=== PATIENT | female | born 1945 | race Caucasian/White ===

== ENCOUNTER 2017-03-15 16:21 | Inpatient (IN) ==
[2017-03-15 18:28] LABS: Basophils % 0.2 % (0.0-0.8); Eosinophils # 0.2 10*3/uL (0.0-0.87); Eosinophils % 2.2 % (0.00-10.9); Hematocrit 33.3 VOL% (35.7-47.0); Hemoglobin 11.1 GM/DL (12.0-16.0); Immature Granulocytes % 1.1 %; Immature Granulocytes Absolute 0.09 #; Lymphocytes % 23.6 % (21.3-54.2); Mean Corpuscular HGB Conc 33.3 GM/DL (32-36); Mean Corpuscular Hemoglobin 31 PG (27-34); Mean Corpuscular Volume 92.5 FL (87-102); Mean Platelet Volume 9.9 FL (9.6-12.0); Monocytes # 0.8 10*3/uL (0.11-0.8); Monocytes % 9.8 % (1.7-12.7); Neutrophils # 5.4 10*3/uL (1.4-7.4); Neutrophils % 63.1 % (38.7-73.9); Platelet Count 211 T/CUMM (130-400); White Blood Count 8.5 T/CUMM (4-12)
[2017-03-15 18:42] LABS: PT Patient Result 10.7 SECS; Partial Thromboplastin Time 26.1 SECS (0-40)
[2017-03-15 18:47] LABS: Albumin 3.4 G/DL (3.4-5.0); Bilirubin,Total 0.5 MG/DL (0.2-1.0); Calcium 8.7 MG/DL (8.5-10.1); Osmolality,Calculated 280.5 MOS/KG (273-304); Potassium 3.8 MMOL/L (3.5-5.1); Total Protein 7.2 G/DL (6.4-8.3)
[2017-03-15] MEDS ORDERED: MAGNESIUM HYDROXIDE SUSP 30 ML UDCUP PO PRN (20:50)
[2017-03-15] MEDS ORDERED: HYDROmorphone 2 MG/1 ML VIAL IV PRN (21:00)
[2017-03-15] MEDS: SODIUM CHLORIDE 0.9% 1,000 ML IV SCH (22:07)
[2017-03-16] MEDS: SODIUM CHLORIDE 0.9% 1,000 ML IV SCH ×2 (06:20→16:16)
[2017-03-16] MEDS ORDERED: GLUCAGON 1 MG VIAL IM PRN (09:59)
[2017-03-16] MEDS ORDERED: DEXTROSE 50% 25 GM/50 ML VIAL IV PRN (09:59)
[2017-03-16] MEDS: INSULIN LISPRO 100 UNIT/ML SUBCUT SCH ×3 (11:39→22:09)
[2017-03-16] MEDS: GABAPENTIN 300 MG CAPSULE PO SCH ×2 (16:16→22:10)
[2017-03-16] MEDS: FAMOTIDINE 20 MG TABLET PO SCH (22:10)
[2017-03-16] MEDS: BENZTROPINE 1 MG TABLET PO SCH (22:10)
[2017-03-16] MEDS: ATORVASTATIN 40 MG TABLET PO SCH (22:10)
[2017-03-17] MEDS: SODIUM CHLORIDE 0.9% 1,000 ML IV SCH (05:37)
[2017-03-17] MEDS: INSULIN LISPRO 100 UNIT/ML SUBCUT SCH ×4 (08:01→21:49)
[2017-03-17] MEDS ORDERED: HYDROmorphone 2 MG/1 ML VIAL IV PRN ×2 (08:24→08:38)
[2017-03-17] MEDS ORDERED: Brexpiprazole [Rexulti] 3 MG PO SCH (09:00)
[2017-03-17] MEDS ORDERED: amLODIPine 10 MG TABLET PO SCH (09:00)
[2017-03-17] MEDS: DOCUSATE SODIUM 100 MG CAPSULE PO SCH (09:08)
[2017-03-17] MEDS: BENZTROPINE 1 MG TABLET PO SCH ×2 (09:08→21:50)
[2017-03-17] MEDS: ASPIRIN CHEW 81 MG TABLET PO SCH (09:08)
[2017-03-17] MEDS: LEVOTHYROXINE 25 MCG TABLET PO SCH (09:08)
[2017-03-17] MEDS: SERTRALINE 100 MG TABLET PO SCH (09:09)
[2017-03-17] MEDS: amLODIPine 5 MG TABLET PO SCH (09:09)
[2017-03-17] MEDS: GABAPENTIN 300 MG CAPSULE PO SCH ×3 (09:09→21:50)
[2017-03-17] MEDS: PANTOPRAZOLE 40 MG TABLET PO SCH (09:09)
[2017-03-17] MEDS: FERROUS SULFATE 325 MG TABLET PO SCH (09:09)
[2017-03-17] MEDS: ENOXAPARIN 40 MG/0.4 ML SYRINGE SUBCUT SCH (17:17)
[2017-03-17] MEDS: ATORVASTATIN 40 MG TABLET PO SCH (21:50)
[2017-03-17] MEDS: FAMOTIDINE 20 MG TABLET PO SCH (21:50)
[2017-03-18] MEDS: INSULIN LISPRO 100 UNIT/ML SUBCUT SCH ×4 (07:37→21:03)
[2017-03-18] MEDS: GABAPENTIN 300 MG CAPSULE PO SCH ×3 (09:49→21:20)
[2017-03-18] MEDS: amLODIPine 5 MG TABLET PO SCH (09:49)
[2017-03-18] MEDS: SERTRALINE 100 MG TABLET PO SCH (09:49)
[2017-03-18] MEDS: BENZTROPINE 1 MG TABLET PO SCH ×2 (09:49→21:20)
[2017-03-18] MEDS: DOCUSATE SODIUM 100 MG CAPSULE PO SCH (09:49)
[2017-03-18] MEDS: ASPIRIN CHEW 81 MG TABLET PO SCH (09:49)
[2017-03-18] MEDS: LEVOTHYROXINE 25 MCG TABLET PO SCH (09:49)
[2017-03-18] MEDS: FERROUS SULFATE 325 MG TABLET PO SCH (09:50)
[2017-03-18] MEDS: PANTOPRAZOLE 40 MG TABLET PO SCH (09:50)
[2017-03-18] MEDS: ENOXAPARIN 40 MG/0.4 ML SYRINGE SUBCUT SCH (17:58)
[2017-03-18] MEDS: FAMOTIDINE 20 MG TABLET PO SCH (21:19)
[2017-03-18] MEDS: ATORVASTATIN 40 MG TABLET PO SCH (21:19)
[2017-03-19] MEDS: INSULIN LISPRO 100 UNIT/ML SUBCUT SCH ×4 (07:33→22:00)
[2017-03-19] MEDS: FERROUS SULFATE 325 MG TABLET PO SCH (08:38)
[2017-03-19] MEDS: GABAPENTIN 300 MG CAPSULE PO SCH ×3 (08:39→21:59)
[2017-03-19] MEDS: LEVOTHYROXINE 25 MCG TABLET PO SCH (08:39)
[2017-03-19] MEDS: SERTRALINE 100 MG TABLET PO SCH (08:39)
[2017-03-19] MEDS: amLODIPine 5 MG TABLET PO SCH (08:40)
[2017-03-19] MEDS: PANTOPRAZOLE 40 MG TABLET PO SCH (08:40)
[2017-03-19] MEDS: DOCUSATE SODIUM 100 MG CAPSULE PO SCH (08:40)
[2017-03-19] MEDS: ASPIRIN CHEW 81 MG TABLET PO SCH (08:41)
[2017-03-19] MEDS: BENZTROPINE 1 MG TABLET PO SCH ×2 (08:41→22:00)
[2017-03-19] MEDS: ENOXAPARIN 40 MG/0.4 ML SYRINGE SUBCUT SCH (16:41)
[2017-03-19] MEDS: FAMOTIDINE 20 MG TABLET PO SCH (21:59)
[2017-03-19] MEDS: ATORVASTATIN 40 MG TABLET PO SCH (21:59)
[2017-03-20] MEDS: INSULIN LISPRO 100 UNIT/ML SUBCUT SCH ×4 (08:08→22:13)
[2017-03-20] MEDS: SERTRALINE 100 MG TABLET PO SCH (08:46)
[2017-03-20] MEDS: DOCUSATE SODIUM 100 MG CAPSULE PO SCH (08:46)
[2017-03-20] MEDS: GABAPENTIN 300 MG CAPSULE PO SCH ×3 (08:47→22:14)
[2017-03-20] MEDS: BENZTROPINE 1 MG TABLET PO SCH ×2 (08:47→22:14)
[2017-03-20] MEDS: FERROUS SULFATE 325 MG TABLET PO SCH (08:47)
[2017-03-20] MEDS: LEVOTHYROXINE 25 MCG TABLET PO SCH (08:48)
[2017-03-20] MEDS: amLODIPine 5 MG TABLET PO SCH (08:48)
[2017-03-20] MEDS: PANTOPRAZOLE 40 MG TABLET PO SCH (08:49)
[2017-03-20] MEDS: ASPIRIN CHEW 81 MG TABLET PO SCH (08:49)
[2017-03-20] MEDS: ENOXAPARIN 40 MG/0.4 ML SYRINGE SUBCUT SCH (17:11)
[2017-03-20] MEDS: ATORVASTATIN 40 MG TABLET PO SCH (22:14)
[2017-03-20] MEDS: FAMOTIDINE 20 MG TABLET PO SCH (22:15)
[2017-03-21] MEDS: GABAPENTIN 300 MG CAPSULE PO SCH ×3 (09:38→21:47)
[2017-03-21] MEDS: BENZTROPINE 1 MG TABLET PO SCH ×2 (09:38→21:47)
[2017-03-21] MEDS: amLODIPine 5 MG TABLET PO SCH (09:38)
[2017-03-21] MEDS: LEVOTHYROXINE 25 MCG TABLET PO SCH (09:38)
[2017-03-21] MEDS: INSULIN LISPRO 100 UNIT/ML SUBCUT SCH ×4 (09:38→21:48)
[2017-03-21] MEDS: ASPIRIN CHEW 81 MG TABLET PO SCH (09:38)
[2017-03-21] MEDS: FERROUS SULFATE 325 MG TABLET PO SCH (09:38)
[2017-03-21] MEDS: PANTOPRAZOLE 40 MG TABLET PO SCH (09:38)
[2017-03-21] MEDS: SERTRALINE 100 MG TABLET PO SCH (09:38)
[2017-03-21] MEDS: DOCUSATE SODIUM 100 MG CAPSULE PO SCH (09:38)
[2017-03-21] MEDS: ENOXAPARIN 40 MG/0.4 ML SYRINGE SUBCUT SCH (18:03)
[2017-03-21] MEDS: FAMOTIDINE 20 MG TABLET PO SCH (21:47)
[2017-03-21] MEDS: ATORVASTATIN 40 MG TABLET PO SCH (21:47)
[2017-03-22] MEDS: LEVOTHYROXINE 25 MCG TABLET PO SCH (10:17)
[2017-03-22] MEDS: BENZTROPINE 1 MG TABLET PO SCH ×2 (10:17→21:48)
[2017-03-22] MEDS: FERROUS SULFATE 325 MG TABLET PO SCH (10:17)
[2017-03-22] MEDS: DOCUSATE SODIUM 100 MG CAPSULE PO SCH (10:17)
[2017-03-22] MEDS: ASPIRIN CHEW 81 MG TABLET PO SCH (10:17)
[2017-03-22] MEDS: amLODIPine 5 MG TABLET PO SCH (10:18)
[2017-03-22] MEDS: GABAPENTIN 300 MG CAPSULE PO SCH ×3 (10:18→21:48)
[2017-03-22] MEDS: PANTOPRAZOLE 40 MG TABLET PO SCH (10:18)
[2017-03-22] MEDS: SERTRALINE 100 MG TABLET PO SCH (10:18)
[2017-03-22] MEDS: INSULIN LISPRO 100 UNIT/ML SUBCUT SCH ×4 (10:20→21:48)
[2017-03-22] MEDS: ENOXAPARIN 40 MG/0.4 ML SYRINGE SUBCUT SCH (16:21)
[2017-03-22] MEDS: FAMOTIDINE 20 MG TABLET PO SCH (21:48)
[2017-03-22] MEDS: ATORVASTATIN 40 MG TABLET PO SCH (21:48)
[2017-03-23] MEDS: INSULIN LISPRO 100 UNIT/ML SUBCUT SCH ×3 (07:33→17:42)
[2017-03-23] MEDS: GABAPENTIN 300 MG CAPSULE PO SCH ×2 (08:29→17:42)
[2017-03-23] MEDS: FERROUS SULFATE 325 MG TABLET PO SCH (08:30)
[2017-03-23] MEDS: amLODIPine 5 MG TABLET PO SCH (08:32)
[2017-03-23] MEDS: ASPIRIN CHEW 81 MG TABLET PO SCH (08:32)
[2017-03-23] MEDS: SERTRALINE 100 MG TABLET PO SCH (08:32)
[2017-03-23] MEDS: PANTOPRAZOLE 40 MG TABLET PO SCH (08:32)
[2017-03-23] MEDS: DOCUSATE SODIUM 100 MG CAPSULE PO SCH (08:33)
[2017-03-23] MEDS: BENZTROPINE 1 MG TABLET PO SCH (08:33)
[2017-03-23] MEDS: LEVOTHYROXINE 25 MCG TABLET PO SCH (08:34)
[2017-03-23] MEDS: ENOXAPARIN 40 MG/0.4 ML SYRINGE SUBCUT SCH ×2 (13:30→17:42)
[2017-03-23 17:27] VITALS: BP 146/80
== END 2017-03-23 16:40 | disposition swing bed (61) | DRG 536 ==
LOC: EDUNIT# → EDBD → EDSEX → N.ED 16:21 → N.EDINP 17:43 → N.3E 19:31
PROVIDERS: ADMIT Orthopaedic Surgery; ATTEND Orthopaedic Surgery